=== PATIENT | male | born 1995 | race Hispanic/Latino ===

== ENCOUNTER 2020-09-02 17:29 | Emergency (ER) | payer SELFPAY ==
--- NOTE | 2020-09-02 18:53 | RAD ---
Right forearm 2 views HISTORY: Injury. FINDINGS: Radius and ulna are intact. No acute fracture, dislocation, or aggressive osseous erosions. Tiny well-corticated ossification adjacent to the far medial aspect of the articular surface of the d istal radius may represent an old ununited ossific avulsion. IMPRESSION : No acute abnormalities are demonstrated
== END 2020-09-02 19:20 | disposition home or self-care (01) ==
LOC: ERS 17:29
DX: S56.911A Strain of unspecified muscles, fascia and tendons at forearm level, right arm, initial encounter (principal); X50.3XXA Overexertion from repetitive movements, initial encounter